=== PATIENT | male | born 1995 | race Caucasian/White ===

== ENCOUNTER 2024-05-16 06:09 | Emergency (ER) | payer SELFPAY ==
[~2024-05-16] VITALS: Ht 170.2 cm; Wt 64.0 kg
[2024-05-16 06:17] VITALS: O2SAT 97
[2024-05-16 09:45] VITALS: BP 127/84; PULSE 80; RESP 13; TEMP 36.33624; O2SAT 97
== END 2024-05-16 09:50 | disposition home or self-care (01) ==
LOC: ER 06:09
DX: S06.0XAA Concussion with loss of consciousness status unknown, initial encounter (principal); F10.129 Alcohol abuse with intoxication, unspecified; W19.XXXA Unspecified fall, initial encounter; Y93.89 Activity, other specified; Y92.89 Other specified places as the place of occurrence of the external cause; Y99.8 Other external cause status
CPT/HCPCS: 99284